=== PATIENT | female | born 2000 | race African-American/Black ===

== ENCOUNTER 2022-02-28 20:47 | Emergency (ER) | payer OTHER ==
[~2022-02-28] VITALS: Ht 157.5 cm; Wt 86.2 kg
[2022-02-28 23:06] LABS: PLATELET COUNT 261 K/uL (152-353)
[2022-02-28 23:22] LABS: POTASSIUM 3.6 mmol/L (3.6-5.2)
[2022-03-01 01:15] VITALS: BP 128/73; TEMP 98.9
== END 2022-03-01 01:15 | disposition home or self-care (01) ==
LOC: ED 20:47
PROVIDERS: Hospitalist
DX: R10.84 Generalized abdominal pain (principal); K59.09 Other constipation; N83.292 Other ovarian cyst, left side; N83.291 Other ovarian cyst, right side
CPT/HCPCS: 36415; 80053; 80320; 81000; 81025; 83690; 85027; 96365; 96375; 99284; J1170; J1885; J2405; Q9963

== ENCOUNTER 2022-05-08 10:19 | Emergency (ER) | payer OTHER ==
[~2022-05-08] VITALS: Ht 157.5 cm; Wt 93.0 kg
[2022-05-08 14:42] VITALS: BP 117/60; TEMP 98.9
== END 2022-05-08 14:42 | disposition home or self-care (01) ==
LOC: ED 10:19
DX: R10.32 Left lower quadrant pain (principal); R10.31 Right lower quadrant pain; N83.291 Other ovarian cyst, right side
CPT/HCPCS: 81002; 81025; 99283